=== PATIENT | female | born 1970 | race Caucasian/White ===

== ENCOUNTER → 2017-05-08 | Outpatient (CLI) | payer OTHER ==
[~2017-05-08] MED LIST: AMBIEN 10MG10 MG PO; FIORICET 325 MG1 TA1 PO; NORCO 325 MG-7.1 TAB PO; PROAIR HFA0.09 MG/AC IH; ROXICODONE 55 MG/TAB PO
== END ==
LOC: MC.RAD 04-28 14:20
DX: Z12.31 Encounter for screening mammogram for malignant neoplasm of breast (principal)

== ENCOUNTER → 2017-09-08 | Outpatient (CLI) | payer OTHER | LOC: COL.CARD 08:17 | DX: R00.2 Palpitations (principal) ==

== ENCOUNTER → 2019-06-20 | Outpatient (CLI) | payer OTHER | LOC: COL.RAD 06:56 | DX: R93.5 Abnormal findings on diagnostic imaging of other abdominal regions, including retroperitoneum (principal); R19.09 Other intra-abdominal and pelvic swelling, mass and lump; Z90.710 Acquired absence of both cervix and uterus; Z90.721 Acquired absence of ovaries, unilateral ==

== ENCOUNTER 2019-09-09 09:33 | Inpatient (IN) | payer OTHER ==
[~2019-09-09] VITALS: Ht 170.2 cm; Wt 86.7 kg
[2019-10-08] VITALS (10 sets, daily range): BP systolic 121–141; BP diastolic 58–91; PULSE 61–80; TEMP 97.4–98
[2019-10-08] MEDS ORDERED: BRISDELLE PO (05:46)
--- NOTE | 2019-10-08 06:13 | NUR ---
Patient arrives to [facility] [place] [facility] for pre-op admission at 0531. She is alert and oriented. She is accompanied by her , Symone. The procedure is confirmed with the patient and her . They verbalize understanding and deny any questions. VSS and WNL on room air. She changes to the gown independently. Given a warm blanket. PIV started in left hand with x1 attempt and without complication. Pre-op medications given. Breath sounds are clear bilaterally to auscultation. Clear S1S2 heart tones with regular rate noted. Bowel sounds are active and audible x4 quadrants. Abdomen soft, nontender. +2 radial, DP and PT pulses palpated bilaterally. No edema noted. Denies any numbness, tingling, or pain. PERRLA noted, +2 pupils bilaterally. Call light usage is taught and within reach. Will continue to monitor.
--- NOTE | 2019-10-08 07:18 | NUR ---
Patient to the OR with DAVID Cruz at this time. Her belongings are taken to the PACU.
[2019-10-08] MEDS ORDERED: MOTRIN 800800 MG/TAB PO (07:20)
[2019-10-08] MEDS ORDERED: NORCO 325 MG-51 TAB PO (09:31)
--- NOTE | 2019-10-08 09:59 | NUR ---
0945 REPORT TAKEN FROM OR STAFF.
--- NOTE | 2019-10-08 11:06 | NUR ---
1030 RATES PAIN A 8 OUT OF 10. NORCO 1 TAB GIVEN AT THIS TIME. WILL REPEAT IN 45 MIN IF NOT BETTER. 1100 STEVEN CALLS OUT STATES PAIN IS STILL A 8. DR GLASGOW CALLED AND UPDATED. ORDERS TO REPEAT NORCO NOW AND IF NOT DECREASED BY 1145 THEN MAY GIVE DILATID TIMES ONE TIME
--- NOTE | 2019-10-08 11:09 | NUR ---
NO BLEEDING NOTED AT THIS TIME. ABD SOFT
--- NOTE | 2019-10-08 12:48 | NUR ---
1230 RATES PAIN 4 OUT OF 10 BUT WANTS SOMETHING STRONGER FOR PAIN. DILADID .25 MG IV GIVEN TIMES ONE TIME PER DR GLASGOW ORDER.
[2019-10-09 07:40] VITALS: BP 106/62; PULSE 74; TEMP 98.6
== END 2019-10-09 10:15 | disposition home or self-care (01) | DRG 743 ==
LOC: OB 10-08 05:16 → INPTSU 10-08 05:16 → OB 10-08 07:30 → INPTSU 10-08 09:45 → OB 10-08 09:45
PROVIDERS: ADMIT Obstetrics & Gynecology
PROC: 0UT00ZZ Resection of Right Ovary, Open Approach (ICD-10-PCS; principal; 2019-10-08 07:30)
DX: N80.1 Endometriosis of ovary (principal); G47.00 Insomnia, unspecified; J45.909 Unspecified asthma, uncomplicated; N83.201 Unspecified ovarian cyst, right side; E66.9 Obesity, unspecified; G43.909 Migraine, unspecified, not intractable, without status migrainosus; Z90.710 Acquired absence of both cervix and uterus
CPT/HCPCS: A4314; J0690; J1170; J1885; J2405; J2704; J2710; J3010; J7120

== ENCOUNTER → 2019-10-29 | Outpatient (CLI) | payer OTHER ==
[~2019-10-29] MED LIST changes: +BRISDELLE PO; +MOTRIN 800800 MG/TAB PO; +NORCO 325 MG-51 TAB PO
== END ==
LOC: MC.RAD 07:02
DX: Z12.31 Encounter for screening mammogram for malignant neoplasm of breast (principal)

== ENCOUNTER → 2020-04-23 | Outpatient (CLI) | payer OTHER | LOC: COL.RAD 12:53 | DX: G43.909 Migraine, unspecified, not intractable, without status migrainosus (principal); J01.81 Other acute recurrent sinusitis ==

== ENCOUNTER → 2020-05-04 | Outpatient (CLI) | payer OTHER | LOC: COL.RAD 11:30 | DX: J45.909 Unspecified asthma, uncomplicated (principal) | CPT/HCPCS: Q9967 ==

== ENCOUNTER → 2020-05-21 | Outpatient (CLI) | payer OTHER | LOC: COL.PUL | DX: J45.909 Unspecified asthma, uncomplicated (principal) ==

== ENCOUNTER 2020-10-09 13:41 | Outpatient (CLI) | payer OTHER ==
[~2020-10-09] VITALS: Ht 170.2 cm; Wt 86.0 kg
[~2020-10-09 13:41] MED LIST changes: +AMITRIPTYLINE H25 M1 PO; +BREO INH; +ESTRACE 1MG1 MG/TAB PO; +IMITREX50 MG PO; +PREDNISONE20 MG PO; +TESSALON P100 MG/CAP PO
[2020-10-09 14:46] VITALS: BP 146/87; PULSE 92; TEMP 98.3
[2020-10-09 15:17] VITALS: BP 128/78; PULSE 87
[2020-10-09 15:30] VITALS: BP 133/85; PULSE 88
[2020-10-09 15:45] VITALS: BP 118/77; PULSE 82
[2020-10-09 16:00] VITALS: BP 115/82; PULSE 83
[2020-10-09 16:15] VITALS: BP 125/77; PULSE 85; TEMP 98.3
--- NOTE | 2020-10-09 17:32 | NUR ---
Pt tolerated infusion without any problems. She is ambulatory to exit with steady gait.
== END 2020-10-09 17:20 | disposition home or self-care (01) ==
LOC: EUO 13:41
DX: J45.909 Unspecified asthma, uncomplicated (principal); Z68.31 Body mass index [BMI] 31.0-31.9, adult
CPT/HCPCS: J7050

== ENCOUNTER → 2021-07-12 | Outpatient (CLI) | payer OTHER | LOC: MC.RAD 11:45 | DX: Z12.31 Encounter for screening mammogram for malignant neoplasm of breast (principal) ==

== ENCOUNTER → 2023-09-14 | Outpatient (CLI) | payer OTHER | LOC: MC.RAD 16:40 | DX: Z12.31 Encounter for screening mammogram for malignant neoplasm of breast (principal) ==